=== PATIENT | male | born 1955 | race Caucasian/White ===

== ENCOUNTER 2017-08-04 11:12 | Inpatient (IN) | payer MEDICARE ==
[~2017-08-04] VITALS: Ht 180.3 cm; Wt 90.9 kg
[2017-08-04] VITALS (8 sets, daily range): BP systolic 135–201; BP diastolic 78–111; PULSE 83–98; RESP 18–22; TEMP 97.8–98.9; O2SAT 91–99
[~2017-08-04 11:12] MED LIST: ACCU10TA2 PO; CLIN300C5 PO; FENO145T2 PO; GLUC1000 PO; HYDR-3534 PO; METH750T PO; PERC5TAB12 PO; PRED-503 PO; PRED10PA2 PO; TEST200I12 IM; XANA1TAB2 PO; [UNRECOGNIZED DRUG - CODE] SQ
[2017-08-04 12:21] LABS: AUTOMATED NEUTROPHIL # 3.3 TH/MM3 (1.8-7.7); BASOPHIL % 0.4 % (0.0-2.0); EOSINOPHIL % 0.2 % (0.0-4.0); HEMATOCRIT 48.4 % (39.0-51.0); HEMOGLOBIN 16.3 GM/DL (13.0-17.0); LYMPH % 31.7 % (9.0-44.0); LYMPHOCYTE # 1.7 TH/MM3 (1.0-4.8); MEAN CELL VOLUME 89.8 FL (80.0-100.0); MEAN CORPUSCULAR HEMOGLOBIN 30.4 PG (27.0-34.0); MEAN CORPUSCULAR HGB CONC 33.8 % (32.0-36.0); MEAN PLATELET VOLUME 8.7 FL (7.0-11.0); MONO % 6.6 % (0.0-8.0); MONOCYTE # 0.4 TH/MM3 (0-0.9); NEUT % 61.1 % (16.0-70.0); PLATELET COUNT 73 TH/MM3 (150-450); RED BLOOD COUNT 5.38 MIL/MM3 (4.50-5.90); WHITE BLOOD COUNT 5.3 TH/MM3 (4.0-11.0)
[2017-08-04 12:33] LABS: PROTHROMBIN TIME - PATIENT 9.8 SEC (9.8-11.6)
--- NOTE | 2017-08-04 12:44 | PD ---
HPI Chief Complaint: Respiratory Symptoms Time Seen by Provider: 12:31 Travel History International Travel<30 days: No Contact w/Intl Traveler<30days: No Traveled to known affect area: No History of Present Illness HPI Patient comes emergency department complaining of cold and flulike symptoms ongoing for for 5 days. Patient states symptoms began shortly after spraying multiple chemicals on his lawn. Patient reports generalized body aches, nausea , headache, shortness of breath, and nonproductive cough. Patient reports chest pain with coughing only. Patient reports he took a Z-Jose as well as over- the-counter cold and flu medication and ibuprofen. Patient reports minimal to no improvement with his symptoms. Patient reports he has not been able to smoke as much for the past week secondary to the cough and dyspnea. Reports subjective fevers and nausea. Severity moderate. Coughing makes his symptoms worse. PFSH Past Medical History Arthritis: Yes (RHEUMATOID ARTHRITIS) Asthma: No Atrial Fibrillation: Yes Autoimmune Disease: Yes (RA) Blood Disorders: No Anxiety: Yes (PANIC ATTACKS) Depression: No Heart Rhythm Problems: Yes (HX OF AFIB) Cancer: No Cardiac Catheterization: Yes Cardiovascular Problems: Yes (A-FIB, 2 ABLATIONS) High Cholesterol: Yes Chemotherapy: No Chest Pain: Yes Congestive Heart Failure: No COPD: No Cerebrovascular Accident: No Diabetes: Yes (METFORMIN 01/31/16 0600) Diminished Hearing: No (BILAT TINNITIS, PER PT) Endocrine: No Gastrointestinal Disorders: No Genitourinary: No Headaches: Yes Hypertension: Yes Implanted Vascular Access Dvce: Yes Musculoskeletal: Yes (RIGHT LEG WITH LIMITED ROM) Neurologic: Yes Psychiatric: No Respiratory: Yes Immunizations Current: Yes Myocardial Infarction: No Radiation Therapy: No Seizures: No Sleep Apnea: No Past Surgical History Abdominal Surgery: No AICD: No Body Medical Devices: SPINAL CORD STIMULATOR Cardiac Surgery: Yes (PERIPHERAL NERVE DAMAGE S/P FEM-STOP, HEART ABLATION) Ear Surgery: No Endocrine Surgery: No Eye Surgery: No Genitourinary Surgery: No Gynecologic Surgery: No Neurologic Surgery: Yes (SPINAL CORD STIMULATOR PLACEMENT) Oral Surgery: Yes (TONSILLECTOMY) Pacemaker: No Thoracic Surgery: No Tonsillectomy: Yes Other Surgery: Yes Social History Alcohol Use: No Tobacco Use: Yes (1 PACK PER WEEK) Substance Use: No Allergies-Medications (Allergen,Severity, Reaction): Coded Allergies: MRI PRECAUTION (Verified Adverse Reaction, Severe, PT HAS NEUROSTIMULATOR , 04/05/16) *MDRO Multi-Drug Resistant Organism (Verified Adverse Reaction, Unknown, 04/05/16) MRSA (foot-02/04/16) Reported Meds & Prescriptions Reported Meds & Active Scripts Active Reported Testosterone Cypionate Inj (Testosterone Cypionate) 200 Mg/Ml Inj 400 Mg IM Q28D Xanax (Alprazolam) 1 Mg Tab 1 Mg PO QID PRN Percocet (Oxycodone-Acetaminophen) 5-325 mg Tab 1 Tab PO QID PRN Glucophage (Metformin HCl) 1,000 Mg Tab 1,000 Mg PO DAILY With a meal Fenofibrate 145 Mg Tab 145 Mg PO DAILY Deltasone (Prednisone) 20 Mg Tab 10 Mg PO DAILY Accupril (Quinapril HCl) 10 Mg Tab 10 Mg PO DAILY Review of Systems Except as stated in HPI: all other systems reviewed are Neg Physical Exam Narrative GENERAL: Well-developed, overly nourished, in no acute distress, and non-ill appearing. SKIN: Focused skin assessment warm and dry. HEAD: Atraumatic. Normocephalic. EYES: Pupils equal and round. EOMI. No scleral icterus. No injection or drainage. ENT: No nasal bleeding or discharge. Mucous membranes pink and moist. NECK: Trachea midline. Supple. No nuclear rigidity. CARDIOVASCULAR: Regular rate and rhythm. No murmur appreciated. RESPIRATORY: No accessory muscle use. No respiratory distress. Coarse breath sounds throughout. Dry cough noted on exam. Patient speaking in full sentences without difficulty. GASTROINTESTINAL: Abdomen soft, non-tender, nondistended, and no guarding. Hepatic and splenic margins not palpable. Normal bowel sounds x4. No pulsatile mass. MUSCULOSKELETAL: No obvious deformities. No clubbing. No cyanosis. No edema. Full range of motion. NEUROLOGICAL: Awake and alert. No obvious cranial nerve deficits. Motor grossly within normal limits. Normal speech. PSYCHIATRIC: Appropriate mood and affect; insight and judgment normal. Data Data Last Documented VS Vital Signs Date Time Temp Pulse Resp B/P (MAP) Pulse Ox O2 Delivery O2 Flow Rate FiO2 08/04/17 13:15 96 18 201/111 (141) 99 Room Air 08/04/17 12:50 21 08/04/17 11:39 98.9 Orders Orders Complete Blood Count With Diff (08/04/17 11:42) Basic Metabolic Panel (Bmp) (08/04/17 11:42) Act Partial Throm Time (Ptt) (08/04/17 11:42) Prothrombin Time / Inr (Pt) (08/04/17 11:42) Magnesium (Mg) (08/04/17 11:42) Ckmb (Isoenzyme) Profile (08/04/17 11:42) Troponin I (08/04/17 11:42) Electrocardiogram (08/04/17 11:42) Chest, Pa & Lat (08/04/17 11:42) Influenzae A/B Antigen (08/04/17 12:39) Albuterol-Ipratropium Neb (Duoneb Neb) (08/04/17 12:45) CKMB (08/04/17 11:58) CKMB% (08/04/17 11:58) Albuterol-Ipratropium Neb (Duoneb Neb) (08/04/17 13:15) Resp Mdi/Instruction (08/04/17 13:06) Clonidine (Catapres) (08/04/17 13:15) Methylprednisolone So Succ Inj (Solumedr (08/04/17 13:45) Admit Order (Ed Use Only) (08/04/17 ) Senior Energy Consultant / Telemetry VITALIY.Q8H (08/04/17 14:34) Vital Signs (Adult) Q4H (08/04/17 14:34) Diet 1999 Ada Cons Carb (08/04/17 Dinner) Activity Oob With Assistance (08/04/17 14:34) Notify Dr: Other (08/04/17 14:34) Consult Pulmonology (08/04/17 ) Labs Laboratory Tests Test 08/04/17 11:58 White Blood Count 5.3 TH/MM3 Red Blood Count 5.38 MIL/MM3 Hemoglobin 16.3 GM/DL Hematocrit 48.4 % Mean Corpuscular Volume 89.8 FL Mean Corpuscular Hemoglobin 30.4 PG Mean Corpuscular Hemoglobin Concent 33.8 % Red Cell Distribution Width 14.0 % Platelet Count 73 TH/MM3 Mean Platelet Volume 8.7 FL Neutrophils (%) (Auto) 61.1 % Lymphocytes (%) (Auto) 31.7 % Monocytes (%) (Auto) 6.6 % Eosinophils (%) (Auto) 0.2 % Basophils (%) (Auto) 0.4 % Neutrophils # (Auto) 3.3 TH/MM3 Lymphocytes # (Auto) 1.7 TH/MM3 Monocytes # (Auto) 0.4 TH/MM3 Eosinophils # (Auto) 0.0 TH/MM3 Basophils # (Auto) 0.0 TH/MM3 CBC Comment AUTO DIFF Differential Comment AUTO DIFF CONFIRMED Platelet Estimate LOW Platelet Morphology Comment NORMAL Prothrombin Time 9.8 SEC Prothromb Time International Ratio 1.0 RATIO Activated Partial Thromboplast Time 27.8 SEC Blood Urea Nitrogen 14 MG/DL Creatinine 1.17 MG/DL Random Glucose 144 MG/DL Calcium Level 8.5 MG/DL Magnesium Level 1.7 MG/DL Sodium Level 139 MEQ/L Potassium Level 4.0 MEQ/L Chloride Level 102 MEQ/L Carbon Dioxide Level 30.2 MEQ/L Anion Gap 7 MEQ/L Estimat Glomerular Filtration Rate 63 ML/MIN Total Creatine Kinase 334 U/L Creatine Kinase MB 1.0 NG/ML Creatine Kinase MB % 0.3 % Troponin I LESS THAN 0.02 NG/ML MDM Medical Decision Making Medical Screen Exam Complete: Yes Emergency Medical Condition: Yes Interpretation(s) EKG reviewed by Dr. Beckham shows sinus rhythm with a ventricular rate 93. No STEMI. Last Impressions Chest X-Ray 08/04/17 1142 Signed Impressions: Service Date/Time: Friday, August 04, 2017 12:18 - CONCLUSION: No acute disease. Sancho Cobb MD Differential Diagnosis COPD exacerbation, pneumonia, bronchitis, atypical chest pain, metabolic disturbance Narrative Course Patient was seen and examined. IV was established patient was on cardiac monitoring. Initial laboratory radiological studies were ordered. Patient was given duo nebs with little improvement of symptoms. Patient was then given steroids and also clonidine for his blood pressure. Discussed patient Dr. Hernandez saw and evaluated the patient recommends admitting for COPD exacerbation. Discussed all findings plan of care patient is agreeable for admission. Discussed patient with Dr. Lizama who is agreeable to admit the patient. Patient remained stable throughout ED course. Physician Communication Physician Communication [phone] Spangler who is agreeable to admit patient and requesting a pulmonary consult be placed for the patient. Diagnosis Primary Impression: COPD exacerbation Admitting Information Admitting Physician Requests: Admit Condition: Stable Hernan Chavez Aug 04, 2017 12:44
[2017-08-04] MEDS ORDERED: RESP: ALBUTEROL 2.5 MG/IPRATROPIUM 0.5 MG NEB (SCH) INH ONE ×2 (12:45→13:15)
--- NOTE | 2017-08-04 12:46 | RADRPT ---
EXAM DATE/TIME: 08/04/2017 12:18 [facility] COMPARISON: CHEST PA & LAT, July 24, 2014, 22:10. INDICATIONS : Shortness of breath and cough. MEDICAL HISTORY : Hypertension. SURGICAL HISTORY : None. ENCOUNTER: Initial ACUITY: 1 week PAIN SCORE: 10/10 LOCATION: Bilateral chest FINDINGS: PA and lateral views of the chest demonstrate the lungs to be symmetrically aerated without evidence of mass, infiltrate or effusion. The cardiomediastinal contours are unremarkable. Osseous structure s are intact. Stimulator leads are again noted in the lower thoracic spine. CONCLUSION: No acute disease. Sancho Cobb MD on August 04, 2017 at 12:44 Board Certified Radiologist. This report was verified electronically.
[2017-08-04 12:49] LABS: BICARBONATE 30.2 MEQ/L (21.0-32.0); BLOOD UREA NITROGEN 14 MG/DL (7-18); CALCIUM 8.5 MG/DL (8.5-10.1); CHLORIDE 102 MEQ/L (98-107); CREATININE 1.17 MG/DL (0.60-1.30); GLOMERULAR FILTRATION RATE 63 ML/MIN (>89); GLUCOSE,RANDOM 144 MG/DL (74-106); MAGNESIUM 1.7 MG/DL (1.5-2.5); SODIUM (NA) 139 MEQ/L (136-145); TROPONIN I LESS THAN 0.02 NG/ML (0.02-0.05)
[2017-08-04] MEDS ORDERED: cloNIDine HCL 0.1 MG TAB PO ONE (13:15)
[2017-08-04] MEDS ORDERED: methylPREDNISolone SOD SUCC 125 MG/2 ML VIAL IV PUSH ONE (13:45)
[2017-08-04] MEDS ORDERED: ONDANSETRON HCL 4 MG/2 ML VIAL IVP PRN (17:15)
[2017-08-04] MEDS ORDERED: BISACODYL 10 MG SUPP RECTAL PRN (17:15)
[2017-08-04] MEDS ORDERED: MAGNESIUM HYDROXIDE SUSP 30 ML CUP PO PRN (17:15)
[2017-08-04] MEDS ORDERED: LACTULOSE SYRUP 20 GM/30 ML CUP PO PRN (17:15)
[2017-08-04] MEDS ORDERED: SENNOSIDES 8.6 MG TAB PO PRN (17:15)
[2017-08-04] MEDS ORDERED: NALOXONE HCL 0.4 MG/ML AMP IV PUSH PRN (17:15)
[2017-08-04] MEDS ORDERED: ALPRAZolam 0.5 MG TAB PO PRN (17:15)
[2017-08-04] MEDS ORDERED: SODIUM CHLORIDE 0.9% FLUSH 10 ML FLUSH IV FLUSH PRN (17:15)
--- NOTE | 2017-08-04 17:24 | HHI.HP ---
History of Present Illness Primary Care Physician Surya Lizama, DO Admission Diagnosis COPD exacerbation Diagnoses: History of Present Illness pt was using pesticide and smoking he has been doing this all week and became sob eventually presenting to ED with respiratory distress Review of Systems Respiratory: COMPLAINS OF: Cough, Wheezing Cardiovascular: COMPLAINS OF: Chest pain Past Family Social History Allergies: Coded Allergies: MRI PRECAUTION (Verified Adverse Reaction, Severe, PT HAS NEUROSTIMULATOR , 04/05/16) *MDRO Multi-Drug Resistant Organism (Verified Adverse Reaction, Unknown, 04/05/16) MRSA (foot-02/04/16) Past Medical History copd chronic pain Past Surgical History spinal cord stimulator Reported Medications Reported Meds & Active Scripts Active Reported Testosterone Cypionate Inj (Testosterone Cypionate) 200 Mg/Ml Inj 400 Mg IM Q28D Xanax (Alprazolam) 1 Mg Tab 1 Mg PO QID PRN Percocet (Oxycodone-Acetaminophen) 5-325 mg Tab 1 Tab PO QID PRN Glucophage (Metformin HCl) 1,000 Mg Tab 1,000 Mg PO DAILY With a meal Fenofibrate 145 Mg Tab 145 Mg PO DAILY Deltasone (Prednisone) 20 Mg Tab 10 Mg PO DAILY Accupril (Quinapril HCl) 10 Mg Tab 10 Mg PO DAILY Active Ordered Medications Inpatient Medications Albuterol/ Ipratropium (Duoneb Neb) 1 ampule ONCE ONCE INH Last administered on 08/04/17at 13:15; Start 08/04/17 at 13:15; Stop 08/04/17 at 13:16; Status DC Bisacodyl (Dulcolax Supp) 10 mg DAILY PRN RECTAL SEVERE CONSITIPATION; Start at 17:15; Status UNV Clonidine (Catapres) 0.1 mg ONCE ONCE PO Last administered on 08/04/17at 14:13 ; Start 08/04/17 at 13:15; Stop 08/04/17 at 13:16; Status DC Heparin Sodium (Porcine) (Heparin Inj) 5,000 units Q12H SQ ; Start 08/04/17 at 17:15; Status UNV Lactulose (Lactulose Liq) 30 ml DAILY PRN PO SEVERE CONSITIPATION; Start at 17:15; Status UNV Magnesium Hydroxide (Milk Of Magnesia Liq) 30 ml Q12H PRN PO Mild constipation ; Start 08/04/17 at 17:15; Status UNV Methylprednisolone Sodium Succinate (SoluMEDROL INJ) 125 mg ONCE ONCE IV PUSH Last administered on 08/04/17at 14:13; Start 08/04/17 at 13:45; Stop 08/04/17 at 13:47; Status DC Naloxone HCl (Narcan Inj) 0.4 mg UNSCH PRN IV PUSH SEE LABEL COMMENTS; Start at 17:15; Status UNV Ondansetron HCl (Zofran Inj) 4 mg Q6H PRN IVP NAUSEA OR VOMITING; Start at 17:15; Status UNV Senna/Docusate Sodium (Carine-Colace) 1 tab BID PO ; Start 08/04/17 at 21:00; Status UNV Sennosides (Senokot) 17.2 mg Q12H PRN PO Moderate constipation; Start 08/04/17 at 17:15; Status UNV Sodium Chloride (NS Flush) 2 ml BID IV FLUSH ; Start 08/04/17 at 21:00 Family History father with prostate cancer mother with diabetes Social History pos smoker Physical Exam Vital Signs Vital Signs Date Time Temp Pulse Resp B/P (MAP) Pulse Ox O2 Delivery O2 Flow Rate FiO2 08/04/17 14:52 95 18 163/81 (108) 99 Room Air 08/04/17 13:15 96 18 201/111 (141) 99 Room Air 08/04/17 12:50 94 21 08/04/17 12:30 18 Room Air 08/04/17 11:39 98.9 98 20 186/99 (128) 92 Physical Exam GENERAL: This is a well-nourished, well-developed patient, SKIN: No rashes, ecchymoses or lesions. Cool and dry. HEAD: Atraumatic. Normocephalic. No temporal or scalp tenderness. EYES: Pupils equal round and reactive. Extraocular motions intact. No scleral icterus. No injection or drainage. ENT: Nose without bleeding, purulent drainage or septal hematoma. Throat without erythema, tonsillar hypertrophy or exudate. Uvula midline. Airway patent. NECK: Trachea midline. No JVD or lymphadenopathy. Supple, nontender, no meningeal signs. CARDIOVASCULAR: Regular rate and rhythm without murmurs, gallops, or rubs. RESPIRATORY: diminished sounds through out with wheeze and rhonchi GASTROINTESTINAL: Abdomen soft, non-tender, obese nondistended. No hepato- splenomegaly, or palpable masses. No guarding. MUSCULOSKELETAL: Extremities without clubbing, cyanosis, or edema. No joint tenderness, effusion, or edema noted. No calf tenderness. Negative Homans sign bilaterally. NEUROLOGICAL: Awake and alert. Cranial nerves II through XII intact. Motor and sensory grossly within normal limits. Five out of 5 muscle strength in all muscle groups. Normal speech. Laboratory Laboratory Tests Test 08/04/17 11:58 White Blood Count 5.3 Red Blood Count 5.38 Hemoglobin 16.3 Hematocrit 48.4 Mean Corpuscular Volume 89.8 Mean Corpuscular Hemoglobin 30.4 Mean Corpuscular Hemoglobin Concent 33.8 Red Cell Distribution Width 14.0 Platelet Count 73 Mean Platelet Volume 8.7 Neutrophils (%) (Auto) 61.1 Lymphocytes (%) (Auto) 31.7 Monocytes (%) (Auto) 6.6 Eosinophils (%) (Auto) 0.2 Basophils (%) (Auto) 0.4 Neutrophils # (Auto) 3.3 Lymphocytes # (Auto) 1.7 Monocytes # (Auto) 0.4 Eosinophils # (Auto) 0.0 Basophils # (Auto) 0.0 CBC Comment AUTO DIFF Differential Comment AUTO DIFF CONFIRMED Platelet Estimate LOW Platelet Morphology Comment NORMAL Prothrombin Time 9.8 Prothromb Time International Ratio 1.0 Activated Partial Thromboplast Time 27.8 Blood Urea Nitrogen 14 Creatinine 1.17 Random Glucose 144 Calcium Level 8.5 Magnesium Level 1.7 Sodium Level 139 Potassium Level 4.0 Chloride Level 102 Carbon Dioxide Level 30.2 Anion Gap 7 Estimat Glomerular Filtration Rate 63 Total Creatine Kinase 334 Creatine Kinase MB 1.0 Creatine Kinase MB % 0.3 Troponin I LESS THAN 0.02 Date/Time Source Procedure Growth Status 08/04/17 12:33 Nasal Aspirate Influenza Types A,B Antigen (SANDRA) - Final NEGATIVE FOR FLU A AND B ANTIGEN.... Complete Result Diagram: 08/04/17 1158 08/04/17 1158 Imaging Last 72 hours Impressions Chest X-Ray 08/04/17 1142 Signed Impressions: Service Date/Time: Friday, August 04, 2017 12:18 - CONCLUSION: No acute disease. Sancho Cobb MD Course breathing improved in ED will admit Henry VTE Risk Assessment Capsean VTE Risk Assessment: Mod/High Risk (score >= 2) Caprini Risk Assessment Model Point Value = 1 Point Value = 2 Point Value = 3 Point Value = 5 Age 41-60 Minor surgery BMI > 25 kg/m2 Swollen legs Varicose veins or History of unexplained or recurrent spontaneous Oral contraceptives or hormone replacement Sepsis (< 1 month) Serious lung disease, including pneumonia (< 1 month) Abnormal pulmonary function Acute myocardial infarction Congestive heart failure (< 1 month) History of inflammatory bowel disease Medical patient at bed rest Age 61-74 Arthroscopic surgery Major open surgery (> 45 min) Laparoscopic surgery (> 45 min) Malignancy Confined to bed (> 72 hours) Immobilizing plaster cast Central venous access Age >= 75 History of VTE Family history of VTE Factor V Leiden Prothrombin [id number] Lupus anticoagulant Anticardiolipin antibodies Elevated serum homocysteine Heparin-induced thrombocytopenia Other congenital or acquired thrombophilia Stroke (< 1 month) Elective arthroplasty Hip, pelvis, or leg fracture Acute spinal cord injury (< 1 month) Prophylaxis Regimen Total Risk Factor Score Risk Level Prophylaxis Regimen 0-1 Low Early ambulation 2 Moderate Order ONE of the following: *Sequential Compression Device (SCD) *Heparin 5000 units SQ BID 3-4 Higher Order ONE of the following medications: *Heparin 5000 units SQ TID *Enoxaparin/Lovenox 40 mg SQ daily (WT < 150 kg, CrCl > 30 mL/min) *Enoxaparin/Lovenox 30 mg SQ daily (WT < 150 kg, CrCl > 10-29 mL/min) *Enoxaparin/Lovenox 30 mg SQ BID (WT < 150 kg, CrCl > 30 mL/min) AND/OR *Sequential Compression Device (SCD) 5 or more Highest Order ONE of the following medications: *Heparin 5000 units SQ TID (Preferred with Epidurals) *Enoxaparin/Lovenox 40 mg SQ daily (WT < 150 kg, CrCl > 30 mL/min) *Enoxaparin/Lovenox 30 mg SQ daily (WT < 150 kg, CrCl > 10-29 mL/min) *Enoxaparin/Lovenox 30 mg SQ BID (WT < 150 kg, CrCl > 30 mL/min) AND *Sequential Compression Device (SCD) Assessment and Plan Assessment and Plan exacerbation copd chronic pain management Discussed Condition With patient and Discharge Planning to home Surya Lizama DO Aug 04, 2017 17:24
[2017-08-04] MEDS: oxyCODONE/ACETAMINOPHEN 5 MG/325 MG TAB PO PRN (17:42)
--- NOTE | 2017-08-04 17:45 | EKG ---
Date Performed: 08/04/2017 Time Performed: 11:52:16 PTAGE: 61 years EKG: Baseline artifact present Sinus rhythm LOW QRS VOLTAGE IN EXTREMITY LEADS BORDERLINE ECG Compared to prior electrocardiogram, Present EKG h as marked artifact and as best I can tell, the rate has increased but I see no definite changes other atkins. DOCTOR: Christofer Dyer Interpretating Date/Time 08/04/2017 17:43:25
--- NOTE | 2017-08-04 18:38 | MB ---
cc: Nimesh Smith MD DATE: 08/04/2017 DATE OF CONSULTATION: 08/04/2017 REQUESTING PHYSICIAN: Dr. Lizama REASON FOR CONSULTATION: COPD exacerbation. HISTORY OF PRESENT ILLNESS: Mr. Moon is a pleasant 61-year-old male with a history of hypertension, diabetes mellitus, atrial fibrillation, status post ablation x2, chronic pain with stimulator in place, history of rheumatoid arthritis, Alessio's syndrome and osteoarthritis. The patient was spraying the lawn including fertilizer, ant killer and another pesticides. One day later he started having flu-like symptoms, was feeling weak, short of breath and has wheezing, has cough, some gurgling in the chest. No fever or chills, no night sweats, no nausea or vomiting. He took some Z-PRISCILA and other medication, did not help, and 3 days later he decided to come to the emergency room. He had a workup done in the emergency room. The chest x-ray shows no acute infiltrate. WBC count is 5.3, hemoglobin 16.3, hematocrit 48.4, MCV 89, platelet count 73. His INR is 1.0. Sodium 139, potassium 4.0, chloride 102, CO2 30, BUN 14, creatinine 1.17. Influenza A and B are negative. PAST MEDICAL HISTORY: Significant history of rheumatoid arthritis, Alessio's syndrome, osteoarthritis, history of atrial fibrillation, status post ablation done twice. 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 Now he is able to ambulate. History of diabetes mellitus, hypertension. MEDICATIONS: He is currently taking Zofran for pain, oxycodone for pain. At home, he takes prednisone 10 mg a day and tetracycline for his rheumatoid arthritis. ALLERGIES: NO KNOWN DRUG ALLERGIES. SOCIAL HISTORY: He is , fourth time now for 3 years. He has a history of smoking off and on for the last 40 years and now is smoking half pack a day, drinks socially. He is retired. 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 FAMILY HISTORY: He has 4 children. REVIEW OF SYSTEMS: Normally, he is up, around and active, able to ambulate. No seizure, stroke or epilepsy. No DVT problems. PHYSICAL EXAMINATION: GENERAL: Well-built, well-nourished man, not in any acute distress. VITAL SIGNS: Blood pressure 163/81, heart rate 95, respiratory rate 18, temperature 98.9. HEENT: Pupils are equal and regular. He has bilateral cataract surgery done. Oral mucosa and nasal mucosa are normal. NECK: Supple. JVD not raised. CHEST: He has bilateral expiratory rhonchi. CARDIOVASCULAR: S1, S2 normal. ABDOMEN: Benign. EXTREMITIES: No edema. IMPRESSION: 1. Chronic obstructive pulmonary disease with exacerbation. 2. Bronchitis. 3. Recent exposure to pesticide, ant killer and week killer. 4. Diabetes mellitus. 5. Hypertension. 6. Atrial fibrillation, status post ablation. 7. Rheumatoid arthritis. 8. Alessio's syndrome. PLAN: I will start him on Solu-Medrol 40 mg q.6 hours. Monitor his blood sugar closely. Zithromax 500 mg a day. Aerosol treatment, albuterol and Atrovent. Once he gets better, we will check his pulmonary functions. He likely has underlying chronic obstructive pulmonary disease. Further treatment will depend on his course in the hospital. Thank you Dr. Lizama for this consultation. MD MANUEL Bullard/SHAYLA , 06:15 PM , 06:37 PM
[2017-08-04] MEDS: HEPARIN SODIUM - SQ 10,000 UNITS/ML VIAL SQ SCH (18:57)
[2017-08-04] MEDS: methylPREDNISolone SOD SUCC 40 MG/1 ML VIAL IV PUSH SCH (19:42)
[2017-08-04] MEDS ORDERED: GLUCAGON 1 MG/ML VIAL OTHER PRN (20:15)
[2017-08-04] MEDS ORDERED: DEXTROSE 50% IN WATER 50 ML VIAL(D50) IV PUSH PRN (20:15)
[2017-08-04] MEDS: SODIUM CHLORIDE 0.9% FLUSH 10 ML FLUSH IV FLUSH SCH (21:00)
[2017-08-04] MEDS: AZITHROMYCIN INJ 500 MG in SODIUM CHLOR 0.9% 250 ML INJ 250 ML IV SCH (21:07)
[2017-08-04] MEDS: DOCUSATE SODIUM 50 MG/SENNA 8.6 MG TAB PO SCH (21:09)
[2017-08-04] MEDS: [UNRECOGNIZED DRUG - OTHER] SQ SCH (21:20)
[2017-08-04] MEDS: RESP: ALBUTEROL 2.5 MG/IPRATROPIUM 0.5 MG NEB (SCH) NEB (22:09)
[2017-08-05] VITALS (7 sets, daily range): BP systolic 138–181; BP diastolic 67–97; PULSE 73–93; RESP 17–18; TEMP 97.2–98.7; O2SAT 91–96
[2017-08-05] MEDS: methylPREDNISolone SOD SUCC 40 MG/1 ML VIAL IV PUSH SCH ×4 (01:43→17:58)
[2017-08-05] MEDS: HEPARIN SODIUM - SQ 10,000 UNITS/ML VIAL SQ SCH ×2 (05:03→17:58)
[2017-08-05] MEDS: oxyCODONE/ACETAMINOPHEN 5 MG/325 MG TAB PO PRN ×2 (05:05→12:34)
[2017-08-05 06:23] LABS: AUTOMATED NEUTROPHIL # 2.4 TH/MM3 (1.8-7.7); BASOPHIL % 0.2 % (0.0-2.0); HEMATOCRIT 45.4 % (39.0-51.0); HEMOGLOBIN 15.4 GM/DL (13.0-17.0); MEAN CELL VOLUME 89.9 FL (80.0-100.0); MEAN CORPUSCULAR HEMOGLOBIN 30.6 PG (27.0-34.0); MEAN PLATELET VOLUME 9.2 FL (7.0-11.0); MONO % 6.6 % (0.0-8.0); MONOCYTE # 0.2 TH/MM3 (0-0.9); NEUT % 66.2 % (16.0-70.0); PLATELET COUNT 86 TH/MM3 (150-450); RED BLOOD COUNT 5.05 MIL/MM3 (4.50-5.90); RED CELL DISTRIBUTION WIDTH 13.9 % (11.6-17.2); WHITE BLOOD COUNT 3.7 TH/MM3 (4.0-11.0)
[2017-08-05 06:52] LABS: ALBUMIN 3.2 GM/DL (3.4-5.0); ALKALINE PHOSPHATASE 63 U/L (45-117); ALT (GPT) 85 U/L (12-78); AST (GOT) 75 U/L (15-37); BICARBONATE 28.2 MEQ/L (21.0-32.0); BLOOD UREA NITROGEN 17 MG/DL (7-18); CALCIUM 8.3 MG/DL (8.5-10.1); CHLORIDE 103 MEQ/L (98-107); CREATININE 1.02 MG/DL (0.60-1.30); GLOMERULAR FILTRATION RATE 74 ML/MIN (>89); GLUCOSE,RANDOM 265 MG/DL (74-106); SODIUM (NA) 140 MEQ/L (136-145); TOTAL BILIRUBIN ADULT 0.6 MG/DL (0.2-1.0); TOTAL PROTEIN 6.8 GM/DL (6.4-8.2)
[2017-08-05] MEDS: RESP: ALBUTEROL 2.5 MG/IPRATROPIUM 0.5 MG NEB (SCH) NEB ×3 (08:00→21:03)
[2017-08-05] MEDS: [UNRECOGNIZED DRUG - OTHER] SQ SCH ×4 (08:43→21:45)
[2017-08-05] MEDS: DOCUSATE SODIUM 50 MG/SENNA 8.6 MG TAB PO SCH ×2 (08:44→21:37)
[2017-08-05] MEDS: SODIUM CHLORIDE 0.9% FLUSH 10 ML FLUSH IV FLUSH SCH ×2 (08:45→21:46)
--- NOTE | 2017-08-05 08:57 | HHI.PR ---
Subjective Remarks Breathing better, sat's maintained on room air. Objective Vital Signs Date Time Temp Pulse Resp B/P (MAP) Pulse Ox O2 Delivery O2 Flow Rate FiO2 08/05/17 08:00 97.2 73 17 174/91 (118) 94 08/05/17 03:16 97.4 86 18 139/86 (103) 95 08/04/17 23:52 97.9 83 18 135/88 (104) 92 08/04/17 22:11 91 21 08/04/17 19:49 97.8 88 18 144/78 (100) 94 08/04/17 18:00 98.2 85 22 153/92 (112) 91 08/04/17 17:39 08/04/17 14:52 95 18 163/81 (108) 99 Room Air 08/04/17 13:15 96 18 201/111 (141) 99 Room Air 08/04/17 12:50 94 21 08/04/17 12:30 18 Room Air 08/04/17 11:39 98.9 98 20 186/99 (128) 92 I/O 08/04/17 08/04/17 08/04/17 08/05/17 08/05/17 08/05/17 07:00 15:00 23:00 07:00 15:00 23:00 Intake Total 480 ml Output Total 320 ml Balance -320 ml 480 ml Intake Oral 480 ml Output Urine Total 320 ml # Voids 1 2 # Bowel Movements 0 Result Diagram: 08/05/17 0503 08/05/17 0503 Imaging Last 24 hours Impressions Chest X-Ray 08/04/17 1142 Signed Impressions: Service Date/Time: Friday, August 04, 2017 12:18 - CONCLUSION: No acute disease. Sancho Cobb MD Other Results PHYSICAL EXAMINATION: GENERAL: Alert Oriented, no acute distress. Lungs: clear with some scattered expiratory wheezes. CV: S1, S2 regular rate ABDOMEN: soft NT EXTREMITIES: No noted edema. Medications and IVs Current Medications Medications (Trade) Dose Ordered Sig/Terell Route Start Time Stop Time Status Last Admin (NS Flush) 2 ml UNSCH PRN IV FLUSH 08/04/17 17:15 (NS Flush) 2 ml BID IV FLUSH 08/04/17 21:00 08/05/17 08:45 (Zofran Inj) 4 mg Q6H PRN IVP 08/04/17 17:15 (Heparin Inj) 5,000 units Q12H SQ 08/04/17 18:00 08/05/17 05:03 (Narcan Inj) 0.4 mg UNSCH PRN IV PUSH 08/04/17 17:15 (Carine-Colace) 1 tab BID PO 08/04/17 21:00 08/05/17 08:44 (Milk Of Magnesia Liq) 30 ml Q12H PRN PO 08/04/17 17:15 08/05/17 08:44 (Senokot) 17.2 mg Q12H PRN PO 08/04/17 17:15 (Dulcolax Supp) 10 mg DAILY PRN RECTAL 08/04/17 17:15 (Lactulose Liq) 30 ml DAILY PRN PO 08/04/17 17:15 (Xanax) 0.5 mg Q6H PRN PO 08/04/17 17:15 (Percocet 5-325 Mg) 1 tab Q6H PRN PO 08/04/17 17:15 08/05/17 05:05 (SoluMEDROL INJ) 40 mg Q6HR IV PUSH 08/04/17 18:15 08/05/17 05:03 (Duoneb Neb) 1 ampule Q6HR WHILE AWAKE NEB NEB 08/04/17 20:00 08/04/17 22:09 Azithromycin 500 mg/Sodium Chloride 250 ml @ 250 mls/hr Q24H IV 08/04/17 20:00 08/04/17 21:07 (Prinivil) 10 mg DAILY PO 08/05/17 09:00 08/05/17 08:44 (D50w (Vial) Inj) 25 ml UNSCH PRN IV PUSH 08/04/17 20:15 (Glucagon Inj) 1 mg UNSCH PRN OTHER 08/04/17 20:15 (NovoLOG SUPPLEMENTAL SCALE) 1 ACHS SLIDING SCALE SQ 08/04/17 21:00 08/05/17 08:43 Assessment and Plan Problem List: (1) COPD exacerbation ICD Codes: J44.1 - Chronic obstructive pulmonary disease with (acute) exacerbation Status: Acute Plan: Pulmonary following, Solu- Medrol, Zithromycin, duonebs Monitor Sat's Will provide Nicotine patch (2) Hypertension ICD Codes: I10 - Essential (primary) hypertension Status: Acute Plan: Home medications restarted Cont to monitor (3) Diabetes 1.5, managed as type 2 ICD Codes: E13.9 - Other specified diabetes mellitus without complications Status: Acute Plan: Monitor Blood sugars S/C coverage Reina Mills August 05, 2017 08:56
[2017-08-05] MEDS ORDERED: LISINOPRIL 10 MG TAB PO SCH (09:00)
[2017-08-05] MEDS ORDERED: NICOTINE 21 MG/24 HR PATCH T-DERMAL SCH (10:45)
[2017-08-05] MEDS ORDERED: RESP: ALBUTEROL 2.5 MG/IPRATROPIUM 0.5 MG NEB (PRN) NEB (17:00)
--- NOTE | 2017-08-05 20:24 | HHI.PR ---
Subjective Remarks 61 YOWM with COPD exac, exposures to Ant killer, pesticides breathing better Weaned to RA No fever Influenza AG neg Objective Vital Signs Vital Signs Date Time Temp Pulse Resp B/P (MAP) Pulse Ox O2 Delivery O2 Flow Rate FiO2 08/05/17 16:00 97.6 80 17 160/90 (113) 94 08/05/17 12:03 97.6 93 17 181/97 (125) 96 08/05/17 10:24 91 21 08/05/17 08:00 97.2 73 17 174/91 (118) 94 08/05/17 03:16 97.4 86 18 139/86 (103) 95 08/04/17 23:52 97.9 83 18 135/88 (104) 92 08/04/17 22:11 91 21 I/O 08/04/17 08/04/17 08/04/17 08/05/17 08/05/17 08/05/17 07:00 15:00 23:00 07:00 15:00 23:00 Intake Total 480 ml 480 ml Output Total 320 ml Balance -320 ml 480 ml 480 ml Intake Oral 480 ml 480 ml Output Urine Total 320 ml # Voids 1 2 5 # Bowel Movements 0 Result Diagram: 08/05/17 0503 08/05/17 0503 Objective Remarks GENERAL: WBWN WM,NAD SKIN: Warm and dry. HEAD: Normocephalic. EYES: No scleral icterus. No injection or drainage. NECK: Supple, trachea midline. No JVD or lymphadenopathy. CARDIOVASCULAR: Regular rate and rhythm without murmurs, gallops, or rubs. RESPIRATORY: Breath sounds equal bilaterally. No accessory muscle use. GASTROINTESTINAL: Abdomen soft, non-tender, nondistended. MUSCULOSKELETAL: No cyanosis, or edema. BACK: Nontender without obvious deformity. No CVA tenderness. A/P Assessment and Plan IMPRESSION: 1. Chronic obstructive pulmonary disease with exacerbation. 2. Bronchitis. 3. Recent exposure to pesticide, ant killer and week killer. 4. Diabetes mellitus. 5. Hypertension. 6. Atrial fibrillation, status post ablation. 7. Rheumatoid arthritis. 8. Alessio's syndrome. PLAN: Aerosol nebs IV Solumedrol Cont Abx SQ Heparin Stable on RA Check PFT Nimesh Smith MD August 05, 2017 20:24
[2017-08-05] MEDS ORDERED: amLODIPine BESYLATE 5 MG TAB PO SCH (20:30)
[2017-08-05] MEDS: AZITHROMYCIN INJ 500 MG in SODIUM CHLOR 0.9% 250 ML INJ 250 ML IV SCH (21:31)
[2017-08-06 00:39] VITALS: BP 139/71; PULSE 87; RESP 18; TEMP 98.2; O2SAT 96
[2017-08-06] MEDS: methylPREDNISolone SOD SUCC 40 MG/1 ML VIAL IV PUSH SCH ×2 (00:49→06:11)
[2017-08-06 04:00] VITALS: BP 150/82; PULSE 89; RESP 18; TEMP 98.1; O2SAT 97
[2017-08-06] MEDS: HEPARIN SODIUM - SQ 10,000 UNITS/ML VIAL SQ SCH (06:12)
[2017-08-06] MEDS ORDERED: ZITHTAB PO (06:48)
[2017-08-06] MEDS ORDERED: Albuterol-Ipratropium Neb NEB (06:48)
[2017-08-06] MEDS ORDERED: AMLO5 PO (06:48)
[2017-08-06 07:28] LABS: ALKALINE PHOSPHATASE 69 U/L (45-117); TOTAL BILIRUBIN ADULT 0.5 MG/DL (0.2-1.0); TOTAL PROTEIN 6.9 GM/DL (6.4-8.2)
[2017-08-06 07:30] LABS: ALBUMIN 3.1 GM/DL (3.4-5.0); ALT (GPT) 89 U/L (12-78); BICARBONATE 29.3 MEQ/L (21.0-32.0); BLOOD UREA NITROGEN 21 MG/DL (7-18); CALCIUM 8.5 MG/DL (8.5-10.1); CHLORIDE 103 MEQ/L (98-107); GLOMERULAR FILTRATION RATE 61 ML/MIN (>89); GLUCOSE,RANDOM 306 MG/DL (74-106); SODIUM (NA) 140 MEQ/L (136-145)
[2017-08-06 07:31] LABS: AST (GOT) 62 U/L (15-37)
[2017-08-06] MEDS ORDERED: REMOVE OLD PATCH T-DERMAL SCH (09:00)
[2017-08-06 15:30] LABS: HEMOGLOBIN A1C 7.9 % (4.3-6.0)
[2017-08-10] MEDS ORDERED: SACC1CAP3 PO (20:15)
[2017-08-10] MEDS ORDERED: XANA1TAB2 PO (20:15)
[2017-08-10] MEDS ORDERED: TETR250C88 PO (20:15)
[2017-08-10] MEDS ORDERED: PERC10TA27 PO (20:15)
[2017-08-10] MEDS ORDERED: ARIC23TA PO (20:15)
[2017-08-11] MEDS ORDERED: IPRASOL INH (10:38)
[2017-08-11] MEDS ORDERED: TAMS5CAP PO (16:18)
== END 2017-08-06 08:08 | disposition home or self-care (01) | DRG 191 ==
LOC: NEPC 11:12 → NEDA 14:36 → INTOOBSV 14:36 → OBSVTOIN 17:15 → N06B 17:48
PROVIDERS: ADMIT Family Medicine; ATTEND Family Medicine
DX: J44.1 Chronic obstructive pulmonary disease with (acute) exacerbation (principal); M02.30 Reiter's disease, unspecified site; I10 Essential (primary) hypertension; I48.91 Unspecified atrial fibrillation; E11.9 Type 2 diabetes mellitus without complications; M06.9 Rheumatoid arthritis, unspecified; F41.9 Anxiety disorder, unspecified; F17.210 Nicotine dependence, cigarettes, uncomplicated; E78.00 Pure hypercholesterolemia, unspecified; G89.29 Other chronic pain; Z96.89 Presence of other specified functional implants; Z79.84 Long term (current) use of oral hypoglycemic drugs; Z77.29 Contact with and (suspected) exposure to other hazardous substances
CPT/HCPCS: 71046; 80048; 80053; 82550; 82552; 82948; 83036; 83735; 84484; 85025; 85610; 85730; 87804; 93005; 94640; 94664; 96374; J0456; J1644; J1815; J2920; J2930; J7050

== ENCOUNTER 2017-08-10 19:38 | Observation (INO) | payer MEDICARE ==
[2017-08-10] MEDS: IOHEXOL 350 MG/ML 10 ML VIAL (for RAD DIAG) IVCONTRAST (19:39)
[2017-08-10] MEDS: RESP: ALBUTEROL 2.5 MG/IPRATROPIUM 0.5 MG NEB (SCH) INH (20:28)
[2017-08-10 20:33] LABS: AUTOMATED NEUTROPHIL # 7.6 TH/MM3 (1.8-7.7); BASOPHIL % 0.4 % (0.0-2.0); EOSINOPHIL # 0.1 TH/MM3 (0-0.4); EOSINOPHIL % 0.5 % (0.0-4.0); HEMATOCRIT 46.2 % (39.0-51.0); HEMO FLAGS DIFF FINAL; HEMOGLOBIN 16.1 GM/DL (13.0-17.0); LYMPH % 18.2 % (9.0-44.0); LYMPHOCYTE # 1.9 TH/MM3 (1.0-4.8); MEAN CELL VOLUME 88.9 FL (80.0-100.0); MEAN CORPUSCULAR HGB CONC 34.8 % (32.0-36.0); MEAN PLATELET VOLUME 8.7 FL (7.0-11.0); MONO % 9.3 % (0.0-8.0); NEUT % 71.6 % (16.0-70.0); PLATELET COUNT 174 TH/MM3 (150-450); RED BLOOD COUNT 5.19 MIL/MM3 (4.50-5.90); RED CELL DISTRIBUTION WIDTH 13.3 % (11.6-17.2); WHITE BLOOD COUNT 10.7 TH/MM3 (4.0-11.0)
[2017-08-10 20:45] LABS: APTT (PATIENT) 23.2 SEC (24.3-30.1)
[2017-08-10 20:55] LABS: ALBUMIN 3.2 GM/DL (3.4-5.0); ANION GAP 6 MEQ/L (5-15); AST (GOT) 35 U/L (15-37); BICARBONATE 30.7 MEQ/L (21.0-32.0); BLOOD UREA NITROGEN 23 MG/DL (7-18); CALCIUM 9.3 MG/DL (8.5-10.1); CHLORIDE 100 MEQ/L (98-107); CREATININE 1.19 MG/DL (0.60-1.30); GLOMERULAR FILTRATION RATE 62 ML/MIN (>89); GLUCOSE,RANDOM 232 MG/DL (74-106); LIPASE 149 U/L (73-393); POTASSIUM 4.1 MEQ/L (3.5-5.1); SODIUM (NA) 137 MEQ/L (136-145)
[2017-08-10 20:56] LABS: ALT (GPT) 157 U/L (12-78)
[2017-08-10 20:57] LABS: LACTIC ACID 1.6 mmol/L (0.4-2.0)
[2017-08-10 21:06] LABS: B-TYPE NATRIURETIC PEPTIDE 14 PG/ML (0-100)
[2017-08-10 21:06] LABS: ALKALINE PHOSPHATASE 128 U/L (45-117); TOTAL BILIRUBIN ADULT 0.9 MG/DL (0.2-1.0); TOTAL PROTEIN 7.3 GM/DL (6.4-8.2); TROPONIN I LESS THAN 0.02 NG/ML (0.02-0.05)
[2017-08-10 21:08] LABS: CREATINE KINASE 35 U/L (39-308)
[2017-08-10 21:56] LABS: BACTERIA, URINE RARE /hpf; BILIRUBIN, URINE NEG (NEG); BLOOD, URINE NEG (NEG); COMMENT (UR) CULT NOT INDICATED; CULTURE IF INDICATED CULT NOT INDICATED; GLUCOSE,URINE 300 mg/dL (NEG); KETONE, URINE NEG (NEG); MUCUS URINE FEW /lpf (OCC); NITRITE,URINE NEG (NEG); PH, URINE 5.5 (5.0-8.5); URINE COLOR YELLOW (YELLW/STRAW); URINE LEUKOCYTE ESTERASE NEG (NEG)
[2017-08-11] MEDS: SODIUM CHLOR 0.9% 1000 ML INJ 1,000 ML IV ×3 (01:41→20:20)
[2017-08-11] MEDS: hydrALAZINE HCL 20 MG/ML VIAL IV PUSH (02:48)
[2017-08-11] MEDS: cloNIDine HCL 0.1 MG TAB PO ×2 (02:48→21:30)
[2017-08-11] MEDS: ALPRAZolam 1 MG TAB PO (04:26)
[2017-08-11] MEDS ORDERED: ALPRAZolam 1 MG TAB PO ×2 (12:00)
[2017-08-11] MEDS: RESP: ALBUTEROL 2.5 MG/IPRATROPIUM 0.5 MG NEB (PRN) NEB (12:57)
[2017-08-11 13:25] LABS: AMMONIA 65 MCMOL/L (11-32); WESTERGREN SEDIMENTATION RATE 25 mm/hr (0-20)
[2017-08-11] MEDS: FENOFIBRATE 145 MG TAB PO (13:45)
[2017-08-11] MEDS: IOHEXOL 350 MG/ML 10 ML VIAL (for RAD DIAG) IVCONTRAST (13:50)
[2017-08-11 13:52] LABS: BLOOD GAS BASE EXCESS 3.5 mmol/L (-2-2); BLOOD GAS CARBOXYHEMOGLOBIN 1.3 % (0-4); BLOOD GAS HCO3 27 mmol/L (22-26); BLOOD GAS METHEMOGLOBIN 0.8 % (0-2); BLOOD GAS O2 HGB SATURATION 93 % (90-100); BLOOD GAS OXYGEN CONTENT 19.6 Vol % (12.0-20.0); BLOOD GAS PCO2 41 mmHg (38-42); BLOOD GAS PO2 72 mmHG (61-120); CRITICAL VALUE NO; DRAW SITE RT RADIAL; FIO2 21 %; NUMBER OF ARTERIAL PUNCTURES 1; OXYGEN DEVICE ROOM AIR; STAT NO; TEMP CORR TO 98.6; ULNAR PULSE PRESENT
[2017-08-11 14:02] LABS: FREE T4 1.03 NG/DL (0.76-1.46)
[2017-08-11] MEDS: oxyCODONE/ACETAMINOPHEN 10 MG/325 MG TAB PO ×2 (14:13→22:10)
[2017-08-11] MEDS: ALPRAZolam 0.5 MG TAB PO ×3 (14:25→18:10)
[2017-08-11] MEDS ORDERED: GLUCAGON 1 MG/ML VIAL OTHER (14:30)
[2017-08-11] MEDS ORDERED: DEXTROSE 50% IN WATER 50 ML VIAL(D50) IV PUSH (14:30)
[2017-08-11 14:34] LABS: HEPATITIS A AB IGM NONREACTIVE (NONREACTIVE); HEPATITIS B CORE AB IGM NONREACTIVE (NONREACTIVE); HEPATITIS B SURFACE ANTIGEN NONREACTIVE (NONREACTIVE); HEPATITIS C AB IgG NONREACTIVE (NONREACTIVE)
[2017-08-11] MEDS ORDERED: ALPRAZolam 0.5 MG TAB PO (18:00)
[2017-08-11] MEDS: INSULIN ASPART SUPPLEMENTAL SCALE SQ ×2 (18:11→22:11)
[2017-08-11] MEDS ORDERED: metFORMIN HCL 500 MG TAB PO (21:00)
[2017-08-11] MEDS ORDERED: DONEPEZIL HCL 5 MG TAB PO (21:00)
[2017-08-11] MEDS: TAMSULOSIN HCL 0.4 MG CAP PO (21:30)
[2017-08-12] MEDS: oxyCODONE/ACETAMINOPHEN 10 MG/325 MG TAB PO ×2 (04:33→10:56)
[2017-08-12] MEDS: SODIUM CHLOR 0.9% 1000 ML INJ 1,000 ML IV (04:33)
[2017-08-12 05:29] LABS: AUTOMATED NEUTROPHIL # 3.9 TH/MM3 (1.8-7.7); BASOPHIL % 0.3 % (0.0-2.0); EOSINOPHIL # 0.1 TH/MM3 (0-0.4); EOSINOPHIL % 1.2 % (0.0-4.0); HEMATOCRIT 42.3 % (39.0-51.0); HEMO FLAGS DIFF FINAL; HEMOGLOBIN 14.6 GM/DL (13.0-17.0); LYMPH % 27.5 % (9.0-44.0); LYMPHOCYTE # 1.9 TH/MM3 (1.0-4.8); MEAN CELL VOLUME 88.9 FL (80.0-100.0); MEAN CORPUSCULAR HEMOGLOBIN 30.8 PG (27.0-34.0); MEAN CORPUSCULAR HGB CONC 34.6 % (32.0-36.0); MEAN PLATELET VOLUME 8.5 FL (7.0-11.0); MONO % 14.7 % (0.0-8.0); NEUT % 56.3 % (16.0-70.0); PLATELET COUNT 152 TH/MM3 (150-450); RED BLOOD COUNT 4.76 MIL/MM3 (4.50-5.90); RED CELL DISTRIBUTION WIDTH 13.4 % (11.6-17.2)
[2017-08-12 06:04] LABS: ALBUMIN 2.7 GM/DL (3.4-5.0); ALKALINE PHOSPHATASE 90 U/L (45-117); ALT (GPT) 90 U/L (12-78); ANION GAP 6 MEQ/L (5-15); AST (GOT) 20 U/L (15-37); BICARBONATE 30.4 MEQ/L (21.0-32.0); BLOOD UREA NITROGEN 17 MG/DL (7-18); CALCIUM 8.3 MG/DL (8.5-10.1); CHLORIDE 106 MEQ/L (98-107); GLOMERULAR FILTRATION RATE 76 ML/MIN (>89); GLUCOSE,RANDOM 124 MG/DL (74-106); POTASSIUM 4.2 MEQ/L (3.5-5.1); SODIUM (NA) 142 MEQ/L (136-145); TOTAL BILIRUBIN ADULT 0.8 MG/DL (0.2-1.0); TOTAL PROTEIN 6.1 GM/DL (6.4-8.2)
[2017-08-12] MEDS ORDERED: LIDOCAINE HCL 1% PF 5 ML AMPULE (06:27)
[2017-08-12] MEDS ORDERED: BUPIVACAINE HCL PF 0.5% 30 ML VIAL (06:27)
[2017-08-12] MEDS ORDERED: MIDAZOLAM HCL 2 MG/2 ML VIAL (06:27)
[2017-08-12] MEDS: ALPRAZolam 0.5 MG TAB PO ×3 (07:51→12:54)
[2017-08-12] MEDS ORDERED: ACETAMINOPHEN 325 MG TAB PO (09:15)
[2017-08-12] MEDS: FENOFIBRATE 145 MG TAB PO (10:00)
[2017-08-12] MEDS: INSULIN ASPART SUPPLEMENTAL SCALE SQ ×2 (10:01→12:00)
[2017-08-12] MEDS ORDERED: ALBUTEROL SULFATE 90 MCG/ACT HFA 8 GM INHALER INH (10:15)
[2017-08-12] MEDS: guaiFENesin E.R. 600 MG TAB PO (10:55)
[2017-08-12 11:13] LABS: MRSA PCR SURVEILLANCE MRSA DETECTED (NOT DETECT)
[2017-08-12] MEDS: BUDESONIDE-FORMOTEROL 160/4.5 MCG INHALER INH (12:54)
[2017-08-12] MEDS: IBUPROFEN 200 MG TAB PO (12:55)
[2017-08-12] MEDS ORDERED: predniSONE 20 MG TAB PO (21:00)
== END 2017-08-12 13:33 | disposition home or self-care (01) ==
LOC: NEDA 08-11 00:04 → NEPFCDU 08-11 04:16 → NEPE 19:38
DX: R53.1 Weakness (principal); J44.1 Chronic obstructive pulmonary disease with (acute) exacerbation; I10 Essential (primary) hypertension; I48.91 Unspecified atrial fibrillation; G89.29 Other chronic pain; M19.011 Primary osteoarthritis, right shoulder; J84.9 Interstitial pulmonary disease, unspecified; E78.5 Hyperlipidemia, unspecified; E11.9 Type 2 diabetes mellitus without complications; F41.0 Panic disorder [episodic paroxysmal anxiety]; E78.00 Pure hypercholesterolemia, unspecified; M06.9 Rheumatoid arthritis, unspecified; M41.9 Scoliosis, unspecified; N28.1 Cyst of kidney, acquired; Z77.098 Contact with and (suspected) exposure to other hazardous, chiefly nonmedicinal, chemicals; F17.210 Nicotine dependence, cigarettes, uncomplicated; Z79.899 Other long term (current) drug therapy; Z91.19 Patient's noncompliance with other medical treatment and regimen; Z79.84 Long term (current) use of oral hypoglycemic drugs
CPT/HCPCS: 36600; 70450; 71045; 71275; 74177; 80053; 80074; 81001; 82140; 82550; 82607; 82805; 82948; 83605; 83690; 83880; 84439; 84443; 84484; 85025; 85610; 85652; 85730; 86140; 87040; 87641; 87804; 87804-59; 93005; 93306; 94640; 94664; 95819; 96361; 96372; 96374; 97162-GP; 99285